=== PATIENT | male | born 1955 | race Caucasian/White ===

== ENCOUNTER 2023-06-30 17:06 | Emergency (ER) | payer MEDICARE, OTHER, SELFPAY ==
[2023-06-30 17:08] VITALS: BP 137/68; BMI 30.4
--- NOTE | 2023-06-30 17:51 | ED.GENMED ---
History of Present Illness
General
Chief Complaint: Flank Pain
Source: patient
Exam Limitations: none
Time Seen by Provider: 06/30/23 17:20
Nursing documentation reviewed up to this point in time: agreed with
Travel History
Have you had any contact with someone who has COVID-19?: No
Do you have any symptoms of coronavirus? Fever > 100 degrees, chills, cough, shortness of breath, sore throat, loss of taste or smell, muscle aches, or headache?: No
History of Present Illness
History of Present Illness:
Patient is a very pleasant 67-year-old man with a past medical history of kidney stones who reports acute onset of right flank pain that started at around 4 PM today. Patient reports it is nearly gone at this time. He reports initially it was
associated with nausea but no vomiting. He denies fevers and chills.
Past History
Past History
ED Past Medical History: Hypercholesterolemia and Other (Renal calculi)
ED Past Surgical History: Other
Social History
Tobacco: Non-smoker
Alcohol: Other
Drug: None
Personal:
Living: with family
Employment: Other
Family History
Family History: Other (No significant)
Review of Systems
Review of Systems
Allergies reviewed?: Yes
All Other Systems: ROS reviewed and negative except as documented in HPI and ROS
Constitutional: Reports no symptoms
EENT: Reports no symptoms
Respiratory: Reports no symptoms
Cardiac: Reports no symptoms
ABD/GI: Reports nausea
: Reports flank pain
Musculoskeletal: Reports no symptoms
Skin: Reports no symptoms
Neurological: Reports no symptoms
Endocrine: Reports no symptoms
Hematologic/Lymphatic: Reports no symptoms
Psychiatric: Reports no symptoms
Phy Exam
Physical Exam
Physical Exam:
Physical Exam
General: no apparent distress, not acutely ill
Neck: supple. no meningeal signs. normal posterior pharynx
Heart: s1/s2 regular rate and rhythm, no murmur. equal radial pulses.
Lungs: no acute respiratory distress. clear bilaterally
Abdomen: normal bowel sounds. not tender. no CVAT. No pulsatile mass
Neuro: alert and oriented. no focal neurological deficits
Skin: no rash
Psychiatric: well kept. interactive and cooperative
Extremities: no edema. no calf tenderness. negative homans. good distal pulses
Course
Orders/Labs/Results
Orders:
Orders
06/30/23 17:50
CT Abd/pel Without Iv Or Oral Urgent
Comment:
Reason For Exam: R flank pain
Urinalysis Reflex To Culture Urgent
Date Specimen was Collected: 06/30/23
Time Specimen was Collected: 17:52
06/30/23 19:47
Complete Blood Count/With Diff Urgent
Comprehensive Metabolic Panel Urgent
06/30/23 20:27
Tamsulosin [Flomax] 0.4 mg PO NOW STA
06/30/23 20:32
Ciprofloxacin HCl [Cipro] 500 mg PO BID ONE
Abnormal Lab Results
06/30/23
19:47
RBC 4.62 L 10^6/uL
(4.70-6.10)
MPV 10.9 H fL
(7.4-10.4)
06/30/23 19:47
06/30/23 19:47
Vital Signs
Initial and Last Documented VS:
Initial Vital Signs
Temp Pulse Resp BP Pulse Ox
99.4 F 83 16 137/68 98
06/30/23 17:08 06/30/23 17:08 06/30/23 17:08 06/30/23 17:08 06/30/23 17:08
Last Documented Vital Signs
Temp Pulse Resp BP Pulse Ox
99.4 F 83 16 137/68 98
06/30/23 17:08 06/30/23 17:08 06/30/23 17:08 06/30/23 17:08 06/30/23 17:08
MDM/Problems Addressed
Differential Diagnosis Includes:
Renal colic, biliary colic, bowel obstruction, pyelonephritis
MDM/Problems Addressed:
Patient presents with acute right flank pain
Chronic conditions affecting care:
History of kidney stones
Acute Exacerbation and/or Progression of Chronic Illness:
Given patient has a history of kidney stones, he may be having acute colic
Acute Exacerbation and/or Progression of Chronic Illness: Other (Kidney stones)
*Radiology
Radiology exam reviewed: radiology read reviewed
*Pulse Oximetry
Patient hypoxic: no
*EKG
Interpreted by ED Provider?: NA
*Diesel Mechanic Apprentice Interpretation
Rate: Diesel Mechanic Apprentice- N/A
*Critical Care Note
Total Time (30-74mins, 75-104mins- exclusive of procedures): Not Applicable
Update Note
Update Note:
Patient has remained comfortable for hours without any nausea, vomiting or any reportable pain. Patient really wants to go home. Patient encouraged to return immediately with any fever, nausea vomiting or chills
ED Attending Note
-
Portions of this chart may have been created with voice recognition software.� Occasional wrong word or��sound alike� substitutions may have occurred due to the inherent limitations of voice recognition software.
Discharge Plan
Departure
Patient Disposition: Home (Routine Discharge)
Date of Disposition: 06/30/23
Time of Disposition: 20:33
Patient with high blood pressure during this ER visit?: Yes
Condition: Good
Covid-19: Not Applicable
Discharge Problem:
Renal colic on right side
Instructions: Renal Colic (DC)
Prescriptions:
New
tamsulosin [Flomax] 0.4 mg capsule
0.4 mg PO DAILY Qty: 7 0RF
ciprofloxacin HCl [Cipro] 500 mg tablet
500 mg PO BID Qty: 13 0RF
tramadol 50 mg tablet
50 - 100 mg PO TID PRN (Reason: Pain) Qty: 10 0RF
No Action
oxycodone-acetaminophen 5 MG/325 MG tablet
1 - 2 tab PO Q6HPRN PRN (Reason: severe pain) Qty: 20 0RF
ondansetron HCl 4 MG tablet
4 mg PO Q8HPRN PRN (Reason: nausea) Qty: 20 0RF
tamsulosin 0.4 MG capsule
0.4 mg PO DAILY Qty: 7 0RF
Referrals:
Duarte Mckee MD [Active] - (Call to schedule an appointment to see in 1-2 weeks)
Alexus Gottlieb DO [Family Provider] -
Activity Restrictions/Additional Instructions:
Return for fever, vomiting or severe pain
Interventions
Interventions:
*Risk Screen - Suicide Last Done: 06/30/23 17:08
*Neglect/Abuse Screening Last Done: 06/30/23 17:08
ED- Fall Risk Assessment Last Done: 06/30/23 17:08
Discharge Date and Time
Print Language: AUSTRIAN
[2023-06-30 19:54] LABS: % Basophils 0.3 % (0-2); % Eosinophils 1.9 % (0-6); % Immature Granulocytes 0.3 % (0-0.5); % Lymphocytes 20.5 % (20.5-51.1); % Monocytes 6.3 % (1.7-9.3); % Neutrophils 70.7 % (42.2-75.2); Absolute Eosinophils 0.1 10^3/uL (0-0.7); Absolute Lymphocytes 1.4 10^3/uL (1.2-3.4); Absolute Monocytes 0.4 10^3/uL (0.1-0.6); Absolute Neutrophils 4.9 10^3/uL (1.4-6.5); Hematocrit 39.8 % (39.0-52.0); Hemoglobin 13.3 g/dL (13.0-18.0); Mean Corp Hgb Conc. 33.4 g/dL (33.0-37.0); Mean Corpuscular Hgb 28.8 pg (27.0-31.0); Mean Corpuscular Volume 86.1 fL (80.0-94.0); Mean Platelet Volume 10.9 fL (7.4-10.4); Nucleated Red Blood Cells % 0 % (-); Platelet Count 211 10^3/uL (130-400); Red Blood Cell Count 4.62 10^6/uL (4.70-6.10); Red Cell Dist. Width 13.2 % (11.5-14.5)
[2023-06-30 20:07] LABS: ALT (SGPT) 18 U/L (0-50); AST (SGOT) 34 U/L (17-59); Albumin 4.2 g/dl (3.5-5.0); Alkaline Phosphatase 77 U/L (38-126); Blood Urea Nitrogen 16 mg/dl (9-20); Carbon Dioxide 26 mmol/L (22-30); Chloride 106 mmol/L (98-107); Estimated Creatinine Clearance > 125 ml/min; Glucose 92 mg/dl (70-99); Potassium 4.4 mmol/L (3.5-5.1); Sodium 140 mmol/L (135-145); Total Bilirubin 0.8 mg/dl (0.2-1.3); Total Protein 6.9 g/dl (6.3-8.2); eGFR > 60.00
[2023-06-30] MEDS: FLOMAX 0.400000000000000022 MG PO (20:33)
[2023-06-30] MEDS: CIPRO 500 MG PO (20:34)
[2023-06-30 20:46] VITALS: BP 130/60
== END 2023-06-30 20:48 | disposition home or self-care (01) ==
LOC: EMR 17:06
PROVIDERS: EMERGENCY PHYSICIAN Emergency Medicine; FAMILY PHYSICIAN Family Medicine
DX: N23 Unspecified renal colic (principal); E78.00 Pure hypercholesterolemia, unspecified; Z87.442 Personal history of urinary calculi
CPT/HCPCS: 99284; 74176; 80053; 85025

== ENCOUNTER 2023-07-01 05:17 | Emergency (ER) | payer MEDICARE, OTHER, SELFPAY ==
[2023-07-01 05:18] VITALS: BMI 31.4
[2023-07-01 05:20] VITALS: BP 144/78
[2023-07-01 05:30] VITALS: BP 153/81
--- NOTE | 2023-07-01 05:35 | ED.GENMED ---
History of Present Illness
<CHASE Vasquez - Last Filed: 07/05/23 00:19>
General
Chief Complaint: Flank Pain
Source: patient
Exam Limitations: none
Time Seen by Provider: 07/01/23 05:29
Travel History
Have you had any contact with someone who has COVID-19?: No
Do you have any symptoms of coronavirus? Fever > 100 degrees, chills, cough, shortness of breath, sore throat, loss of taste or smell, muscle aches, or headache?: No
History of Present Illness
History of Present Illness:
This is a 67 yo male PMH renal calculi presenting for R flank pain. He was in the ED yesterday for the same symptoms and was discharged at 6pm. The pain returned with increased severity at 11pm and has persisted. He states the pain is 10/10 with
radiation to the RLQ. He states this pain is worse than yesterday. He states this pain is associated with vomiting.
Abdominal CT yesterday: '3 mm right distal ureteral calculus. Mild dilation of the more proximal right ureter and pelvicalyceal system.'
Past History
<CHASE Vasquez - Last Filed: 07/05/23 00:19>
Past History
ED Past Medical History: Hypercholesterolemia and Other (Renal calculi)
ED Past Surgical History: Other
Social History
Tobacco: Non-smoker
Alcohol: Other
Drug: None
Personal:
Living: with family
Employment: Other
Family History
Family History: Other (No significant)
Phy Exam
<Manish Wick DO - Last Filed: 07/04/23 08:51>
Physical Exam
Physical Exam:
See MDM under the update note
Course
<CHASE Vasquez - Last Filed: 07/05/23 00:19>
Orders/Labs/Results
Orders:
Orders
07/01/23 05:34
CMP [Comprehensive Metabolic Panel] Urgent
Complete Blood Count/With Diff Urgent
07/01/23 05:51
0.9% Sodium Chloride 1000 ml [Nss] 1,000 ml IV BOLUS
Ketorolac [Toradol] 15 mg IV NOW STA
07/01/23 05:58
Ondansetron Injectable [Zofran] 4 mg IV NOW STA
07/01/23 07:29
Urinalysis Reflex To Culture Urgent
Date Specimen was Collected: 07/01/23
Time Specimen was Collected: 07:27
Abnormal Lab Results
07/01/23 07/01/23
05:34 07:29
MPV 10.9 H fL
(7.4-10.4)
Absolute Neuts (auto) 8.3 H 10^3/uL
(1.4-6.5)
Absolute Lymphs (auto) 0.9 L 10^3/uL
(1.2-3.4)
Neutrophils % 86.7 H %
(42.2-75.2)
Lymphocytes % 9.1 L %
(20.5-51.1)
Glucose 164 H mg/dl
(70-99)
Urine Ketones 3+ A
(Negative)
Urine Glucose Trace A
(Negative)
07/01/23 05:34
07/01/23 05:34
Vital Signs
Initial and Last Documented VS:
Initial Vital Signs
Temp Pulse Resp BP Pulse Ox
98.1 F 84 17 144/78 95
07/01/23 05:20 07/01/23 05:20 07/01/23 05:20 07/01/23 05:20 07/01/23 05:20
Last Documented Vital Signs
Temp Pulse Resp BP Pulse Ox
98.1 F 84 17 137/71 95
07/01/23 05:20 07/01/23 05:20 07/01/23 05:20 07/01/23 07:00 07/01/23 07:30
<Lizandro Mejia, DO - Last Filed: 07/01/23 05:59>
Orders/Labs/Results
Orders:
Orders
07/01/23 05:34
CMP [Comprehensive Metabolic Panel] Urgent
Complete Blood Count/With Diff Urgent
07/01/23 05:51
0.9% Sodium Chloride 1000 ml [Nss] 1,000 ml IV BOLUS
Ketorolac [Toradol] 15 mg IV NOW STA
07/01/23 05:58
Ondansetron Injectable [Zofran] 4 mg IV NOW STA
07/01/23 07:29
Urinalysis Reflex To Culture Urgent
Date Specimen was Collected: 07/01/23
Time Specimen was Collected: 07:27
Abnormal Lab Results
07/01/23 07/01/23
05:34 07:29
MPV 10.9 H fL
(7.4-10.4)
Absolute Neuts (auto) 8.3 H 10^3/uL
(1.4-6.5)
Absolute Lymphs (auto) 0.9 L 10^3/uL
(1.2-3.4)
Neutrophils % 86.7 H %
(42.2-75.2)
Lymphocytes % 9.1 L %
(20.5-51.1)
Glucose 164 H mg/dl
(70-99)
Urine Ketones 3+ A
(Negative)
Urine Glucose Trace A
(Negative)
07/01/23 05:34
07/01/23 05:34
Vital Signs
Initial and Last Documented VS:
Initial Vital Signs
Temp Pulse Resp BP Pulse Ox
98.1 F 84 17 144/78 95
07/01/23 05:20 07/01/23 05:20 07/01/23 05:20 07/01/23 05:20 07/01/23 05:20
Last Documented Vital Signs
Temp Pulse Resp BP Pulse Ox
98.1 F 84 17 137/71 95
07/01/23 05:20 07/01/23 05:20 07/01/23 05:20 07/01/23 07:00 07/01/23 07:30
<Manish Wick, DO - Last Filed: 07/04/23 08:51>
Orders/Labs/Results
Orders:
Orders
07/01/23 05:34
CMP [Comprehensive Metabolic Panel] Urgent
Complete Blood Count/With Diff Urgent
07/01/23 05:51
0.9% Sodium Chloride 1000 ml [Nss] 1,000 ml IV BOLUS
Ketorolac [Toradol] 15 mg IV NOW STA
07/01/23 05:58
Ondansetron Injectable [Zofran] 4 mg IV NOW STA
07/01/23 07:29
Urinalysis Reflex To Culture Urgent
Date Specimen was Collected: 07/01/23
Time Specimen was Collected: 07:27
Abnormal Lab Results
07/01/23 07/01/23
05:34 07:29
MPV 10.9 H fL
(7.4-10.4)
Absolute Neuts (auto) 8.3 H 10^3/uL
(1.4-6.5)
Absolute Lymphs (auto) 0.9 L 10^3/uL
(1.2-3.4)
Neutrophils % 86.7 H %
(42.2-75.2)
Lymphocytes % 9.1 L %
(20.5-51.1)
Glucose 164 H mg/dl
(70-99)
Urine Ketones 3+ A
(Negative)
Urine Glucose Trace A
(Negative)
07/01/23 05:34
07/01/23 05:34
Vital Signs
Initial and Last Documented VS:
Initial Vital Signs
Temp Pulse Resp BP Pulse Ox
98.1 F 84 17 144/78 95
07/01/23 05:20 07/01/23 05:20 07/01/23 05:20 07/01/23 05:20 07/01/23 05:20
Last Documented Vital Signs
Temp Pulse Resp BP Pulse Ox
98.1 F 84 17 137/71 95
07/01/23 05:20 07/01/23 05:20 07/01/23 05:20 07/01/23 07:00 07/01/23 07:30
<Manish Wick DO - Last Filed: 07/04/23 08:51>
*Critical Care Note
Total Time (30-74mins, 75-104mins- exclusive of procedures): Not Applicable
<Manish Wick DO - Last Filed: 07/04/23 08:51>
Update Note
Update Note:
I evaluated the patient at bedside at 8 AM, the patient feels markedly improved after Toradol was given. He states he has Ultram and tramadol at home. I suggested that he stop the Cipro as there is no evidence for infection. He did have ketones
in his urine and feels markedly improved also after IV fluids were given.
EXAM:
GENERAL: Well appearing in minimal distress
HEENT: Moist oral mucosa
CARDIOVASCULAR: No murmurs, normal heart rate, regular rhythm, No chest wall tenderness
PULMONARY: No respiratory distress, breath sounds are clear and equal
ABDOMEN: Soft with no peritoneal signs, no tenderness, no significant CVA tenderness
NEUROLOGIC: Excellent strength all extremities, no coordination deficits
PSYCHIATRIC: Appropriate mental status, normal insight and judgement
EXTREMITIES: Nontender, no edema, moves all extremities equally
SKIN: No rash, no lesions
TIME OF INITIAL ENCOUNTER: 6 AM
NUMBER AND COMPLEXITY OF PROBLEMS ADDRESSED AT THE ENCOUNTER
� Chronic conditions affecting care: Hyperlipidemia, has had kidney stones, NIDDM
� Acute Exacerbation and/or Progression of Chronic Illness: This is an acute problem
� Differential Diagnosis includes: Ureteral stone/colic, pyelonephritis, AAA very unlikely
AMOUNT AND/OR COMPLEXITY OF DATA TO BE REVIEWED AND ANALYZED
� I performed an independent evaluation of and my interpretation is:
EKG:
CT: CT from 06/30/2023 shows a 3 mm distal right ureteral stone
X-rays:
Laboratory Studies: 3+ ketones, glucose 164, white count normal, normal renal function
Other:
� Review of other/old records: I reviewed records, the patient was seen here in June 2023 also with ureteral colic
� Clinical information was obtained by an independent historian: Spoke to at bedside
� Prescriptions/Medications Considered but not given:
� Further testing considered but not performed:
RISK OF COMPLICATIONS AND/OR MORBIDITY OR MORTALITY OF PATIENT MANAGEMENT
� Social determinants of health affecting care: Lives at home
� Discussion with other providers:
� Escalation of care including admission/observation vs risk of discharge considered: The patient feels markedly improved.
ED Attending Note
<CHASE Vasquez - Last Filed: 07/05/23 00:19>
-
Portions of this chart may have been created with voice recognition software.� Occasional wrong word or��sound alike� substitutions may have occurred due to the inherent limitations of voice recognition software.
<Lizandro Mejia DO - Last Filed: 07/01/23 05:59>
ED Attending Note
Patient seen and examined by attending physician: Yes
I performed the substantive portion of visit, reviewed & personally made and approve the management plan that is documented in note by myself or KOBE.: Yes
ED Attending Note:
Pleasant 67-year-old male who presents with right-sided flank pain. He was treated emergency department last evening and diagnosed with a 3 mm kidney stone in the right distal ureter. He states that last evening around 11 PM the pain returned and
felt that he could not keep anything down. He states that the pain has been severe. He took a tramadol but states that he was unable to keep it down. Patient was seen in conjunction with the PA student. I have reviewed and agree with the history
and treatment plan presented. On my independent physical exam, patient is awake, alert, and oriented x3. Patient is in minimal acute distress. 5 out of 10 right-sided flank pain.
Discharge Plan
Departure
Patient Disposition: Home (Routine Discharge)
Date of Disposition: 07/01/23
Time of Disposition: 07:59
Patient with high blood pressure during this ER visit?: Yes
Discharge Problem:
Ureteral colic
Instructions: Kidney Stones (DC)
Prescriptions:
No Action
oxycodone-acetaminophen 5 MG/325 MG tablet
1 - 2 tab PO Q6HPRN PRN (Reason: severe pain) Qty: 20 0RF
ondansetron HCl 4 MG tablet
4 mg PO Q8HPRN PRN (Reason: nausea) Qty: 20 0RF
tamsulosin 0.4 MG capsule
0.4 mg PO DAILY Qty: 7 0RF
tamsulosin [Flomax] 0.4 mg capsule
0.4 mg PO DAILY Qty: 7 0RF
ciprofloxacin HCl [Cipro] 500 mg tablet
500 mg PO BID Qty: 13 0RF
tramadol 50 mg tablet
50 - 100 mg PO TID PRN (Reason: Pain) Qty: 10 0RF
Referrals:
Alexus Gottlieb, [Family Provider] -
Activity Restrictions/Additional Instructions:
Please follow-up with urology. I recommend 3-4 [id number] ibuprofen (Motrin) every 8 hours with food for a few days. Return here if worse. You do have ketones in the urine which suggest dehydration however there is no sign of infection in
the urine therefore I do not feel that you need Cipro.
Interventions
Interventions:
*Risk Screen - Suicide Last Done: 07/01/23 05:20
*General Assessment Last Done: 07/01/23 05:20
*Neglect/Abuse Screening Last Done: 07/01/23 05:20
ED- Fall Risk Assessment Last Done: 07/01/23 05:20
*ED COVID-19 Vaccine History Last Done: 07/01/23 05:20
*Nursing Disposition Last Done: 07/01/23 08:27
RJ-Jdbtrx-Hthhxtcmkw Assessment Last Done: 07/01/23 05:33
ED-Male Genitourinary Assessment Last Done: 07/01/23 05:33
Discharge Date and Time
Discharge Date/Time: 07/01/23 08:28
Print Language: MOHAWK
[2023-07-01 05:43] LABS: % Basophils 0.2 % (0-2); % Eosinophils 0.2 % (0-6); % Immature Granulocytes 0.2 % (0-0.5); % Lymphocytes 9.1 % (20.5-51.1); % Monocytes 3.6 % (1.7-9.3); % Neutrophils 86.7 % (42.2-75.2); Absolute Lymphocytes 0.9 10^3/uL (1.2-3.4); Absolute Monocytes 0.3 10^3/uL (0.1-0.6); Absolute Neutrophils 8.3 10^3/uL (1.4-6.5); Hematocrit 40.5 % (39.0-52.0); Hemoglobin 13.8 g/dL (13.0-18.0); Mean Corp Hgb Conc. 34.1 g/dL (33.0-37.0); Mean Corpuscular Hgb 29.2 pg (27.0-31.0); Mean Corpuscular Volume 85.6 fL (80.0-94.0); Mean Platelet Volume 10.9 fL (7.4-10.4); Nucleated Red Blood Cells % 0 % (-); Platelet Count 213 10^3/uL (130-400); Red Blood Cell Count 4.73 10^6/uL (4.70-6.10); White Blood Cell Count 9.6 10^3/uL (4.8-10.8)
[2023-07-01 05:53] LABS: ALT (SGPT) 19 U/L (0-50); AST (SGOT) 30 U/L (17-59); Albumin 4.4 g/dl (3.5-5.0); Alkaline Phosphatase 88 U/L (38-126); Blood Urea Nitrogen 16 mg/dl (9-20); Calcium 9.8 mg/dl (8.4-10.2); Carbon Dioxide 23 mmol/L (22-30); Chloride 107 mmol/L (98-107); Estimated Creatinine Clearance 103 ml/min; Glucose 164 mg/dl (70-99); Potassium 4.2 mmol/L (3.5-5.1); Sodium 137 mmol/L (135-145); Total Bilirubin 0.9 mg/dl (0.2-1.3); eGFR > 60.00
[2023-07-01] MEDS: NSS 1000 IV (05:57)
[2023-07-01] MEDS: TORADOL 15 MG IV (05:58)
[2023-07-01 06:00] VITALS: BP 147/81
[2023-07-01] MEDS: ZOFRAN 4 MG IV (06:03)
[2023-07-01 07:00] VITALS: BP 137/71
[2023-07-01 07:41] LABS: Urine Albumin Trace (Neg - Trace); Urine Bilirubin Negative (Negative); Urine Character Clear (Clear); Urine Color Yellow; Urine Glucose Trace (Negative); Urine Ketone 3+ (Negative); Urine Leukocyte Negative (Negative); Urine Nitrite Negative (Negative); Urine Occult Blood Negative (Negative); Urine Urobilinogen Negative (Neg - 1+)
== END 2023-07-01 08:28 | disposition home or self-care (01) ==
LOC: EMR 05:17
PROVIDERS: EMERGENCY PHYSICIAN Student in an Organized Health Care Education/Training Program; FAMILY PHYSICIAN Family Medicine
DX: N20.1 Calculus of ureter (principal); R10.31 Right lower quadrant pain; R11.10 Vomiting, unspecified; R03.0 Elevated blood-pressure reading, without diagnosis of hypertension; E78.00 Pure hypercholesterolemia, unspecified; Z88.8 Allergy status to other drugs, medicaments and biological substances
CPT/HCPCS: 99284; 96374; 96375; 96361; 80053; 81003; 85025